=== PATIENT | male | born 1965 | race Hispanic/Latino ===

== ENCOUNTER 2019-06-01 15:12 | Inpatient (IN) | payer OTHER, SELFPAY ==
[2019-06-01 15:53] LABS: #Eosinphils 0.1 thou/uL (0.0-0.7); #Lymphocytes 2.4 thou/uL (1.20-3.40); #Monocytes 0.9 thou/uL (0.11-0.59); #Neutrophils 4.5 thou/uL (1.40-6.50); %Basophils 0.4 % (0.0-1.0); %Eosinophils 1.8 % (0.0-10.0); %Lymphocytes 29.9 % (21.0-51.0); %Monocytes 11.3 % (0.0-10.0); %Neutrophils 56.6 % (42.0-75.0); Hemoglobin 13.3 g/dL (14.0-18.0); Mean Corpuscular HGB CONC 33.4 g/dL (32.0-36.0); Mean Corpuscular Hemoglobin 25.1 pg (27.0-31.0); Mean Platelet Volume 10.4 fL (7.4-10.4); Platelet Count 171 thou/uL (130-400); RBC Distribution Width 14.1 % (11.5-14.5); Red Blood Cell (RBC) Count 5.29 mill/uL (4.70-6.10)
[2019-06-01 16:15] LABS: ALT (SGPT) 26 U/L (8-55); AST (SGOT) 18 U/L (5-34); Albumin 4.1 g/dL (3.5-5.0); Alkaline Phosphatase 114 U/L (40-150); Anion Gap 13 mmol/L (10-20); BUN (Urea Nitrogen) 12 mg/dL (8.4-25.7); Bilirubin, Total 0.3 mg/dL (0.2-1.2); CK (CPK) 129 U/L (30-200); Calc. Creatinine Clearance 0 mL/min (70-130); Calcium 9.2 mg/dL (7.8-10.44); Carbon Dioxide 24 mmol/L (22-29); Chloride 107 mmol/L (98-107); Estimated GFR-MDRD 86; Globulin 3.3 g/dL (2.4-3.5); Glucose 109 mg/dL (70-105); MDiff Complete? YES; Microcytosis SLIGHT = 6-15 cells (100X) (0-5/hpf); Ovalocytes SLIGHT = 2-5 cells (100X) (0-1/hpf); Platelet Morphology Comment Appears Adequate; Polychromasia SLIGHT = 2-3 cells (100X) (0-2/hpf); Potassium 3.8 mmol/L (3.5-5.1); Protein, Total 7.4 g/dL (6.0-8.3); Sodium 140 mmol/L (136-145); Tear Drops SLIGHT = 2-5 cells (100X) (0-1/hpf)
[2019-06-01 18:25] VITALS: BMI 30.4
[2019-06-01] MEDS ORDERED: Acetaminophen 325 MG TAB PO PRN (19:28)
[2019-06-01] MEDS ORDERED: Ondansetron ODT 4 MG TAB PO PRN (19:28)
[2019-06-01] MEDS ORDERED: Labetalol HCl 100 MG/20 ML VIAL SLOW IVP PRN (19:33)
[2019-06-01] MEDS ORDERED: Temazepam 15 MG CAP PO PRN (19:33)
[2019-06-01] MEDS ORDERED: hydrALAZINE 20 MG/ML VIAL SLOW IVP PRN (19:33)
[2019-06-01] MEDS: Famotidine 20 MG TAB PO SCH (21:33)
--- NOTE | 2019-06-01 22:21 | HP ---
CHIEF COMPLAINT: Abnormal echocardiogram finding in outpatient setting. HISTORY OF PRESENT ILLNESS: The patient is a very pleasant 53-year-old Chinese-speaking only male with no past medical history, who presented to his primary care physician's office, Dr. Vargas with [facility], for routine physical exam today. Upon auscultation, Dr. Vargas appreciated a new systolic murmur, and in office low-resolution echocardiogram was performed on the patient. Official report of this echocardiogram is not available, however, a mobile echodensity was appreciated on the mitral valve. Apparently, it was unclear if this could represent a calcification or a vegetation, and the patient was instructed to come to our facility for admission and further workup. He is afebrile, and has no white count. Feels well with no complaints. His daughter is at the bedside and provides history as well as serves as telephone maintainer. The patient is a very active gentleman with no known past medical history. 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 The patient has had no cardiac symptoms, and adamantly denies syncope, palpitations, chest pain, or shortness of breath. He has had no dizziness. He has had no fevers or chills and has felt generally very well. REVIEW OF SYSTEMS: 12-point review of systems performed and is negative. PAST MEDICAL HISTORY: None. PAST SURGICAL HISTORY: None. 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 He lives with his here in [place]. They have 3 children. He completely quit drinking any alcohol 13 years ago. He has never smoked and has never used any type of illicit drugs. FAMILY HISTORY: Positive for diabetes mellitus in his mother. Positive for end-stage renal disease in his father. ALLERGIES: NO KNOWN DRUG ALLERGIES. HOME MEDICATIONS: None. PHYSICAL EXAMINATION: VITAL SIGNS: Blood pressure 133/81, pulse is 75, O2 saturation is 99% on room air, temperature 98.6. GENERAL: This is a healthy-appearing male of stated age, who is resting comfortably in the ER, in no acute distress. HEENT: Head is atraumatic and normocephalic. Mucous membranes are moist. NECK: Trachea is midline. No JVD. CV: S1 and S2. Holosystolic murmur heard best at the left sternal border, grade 3/6. LUNGS: Regular respiratory rate and pattern. Clear to auscultation bilaterally abdomen positive bowel sounds. Soft, nontender. EXTREMITIES: No edema. Warm and well perfused. SKIN: Warm and dry. No rashes or lesions. NEUROLOGIC: Cranial nerves 2 through 12 were intact. The patient is nonfocal. LABORATORY DATA: White blood cell count 8, hemoglobin 13.3, hematocrit 39.7, platelets 171. Sodium 140, potassium 3.8, chloride 107, carbon dioxide 24, anion gap 13, BUN is 12, creatinine 0.93, GFR is 86, glucose 109. Lactic acid 1.1. AST 18, ALT 26, alkaline phosphatase today is 114, creatine kinase 129. ASSESSMENT: 1. Abnormal echocardiogram finding in outpatient setting, reported mobile echodensity present on mitral valve; differential might include rare myxoma versus vegetation versus calcification or flail leaflet. 2. Holosystolic murmur in the setting of above. 3. Mild microcytic anemia. PLAN: At this time, we will obtain a 2D echocardiogram for further evaluation of murmur and abnormal echocardiogram finding. The patient is nontoxic appearing, afebrile, and has no white count. There is no indication for any antibiotic coverage at this time. We will await findings of echocardiogram and consult Cardiology based on findings. Further recommendations based on hospital course. Job ID: [id number] [facility]
[2019-06-02 08:52] LABS: Anion Gap 12 mmol/L (10-20); BUN (Urea Nitrogen) 11 mg/dL (8.4-25.7); Calc. Creatinine Clearance 123 mL/min (70-130); Calcium 9.1 mg/dL (7.8-10.44); Carbon Dioxide 26 mmol/L (22-29); Chloride 107 mmol/L (98-107); Estimated GFR-MDRD Greater than 90; Glucose 101 mg/dL (70-105); Sodium 141 mmol/L (136-145)
[2019-06-02] MEDS: Famotidine 20 MG TAB PO SCH ×2 (08:53→19:54)
[2019-06-02 08:58] LABS: #Eosinphils 0.1 thou/uL (0.0-0.7); #Lymphocytes 1.7 thou/uL (1.20-3.40); #Monocytes 0.9 thou/uL (0.11-0.59); #Neutrophils 4.7 thou/uL (1.40-6.50); %Basophils 0.5 % (0.0-1.0); %Eosinophils 1.5 % (0.0-10.0); %Lymphocytes 22.6 % (21.0-51.0); %Monocytes 11.9 % (0.0-10.0); %Neutrophils 63.5 % (42.0-75.0); Hemoglobin 13.3 g/dL (14.0-18.0); Large Platelets SLIGHT; MDiff Complete? YES; Mean Corpuscular HGB CONC 32.1 g/dL (32.0-36.0); Mean Corpuscular Hemoglobin 24.2 pg (27.0-31.0); Mean Corpuscular Volume 75.4 fL (78.0-98.0); Mean Platelet Volume 10.1 fL (7.4-10.4); Platelet Count 168 thou/uL (130-400); Platelet Morphology Comment Appears Adequate; RBC Distribution Width 13.9 % (11.5-14.5); Red Blood Cell (RBC) Count 5.47 mill/uL (4.70-6.10); White Blood Cell (WBC) Count 7.4 thou/uL (4.8-10.8)
--- NOTE | 2019-06-02 11:30 | PDOC.HOSPP ---
- Subjective Encounter Date: 06/02/19 Encounter Time: 09:30 Subjective: Patient examined, family at the bedside, denies complaints - Objective Vital Signs & Weight: Vital Signs (12 hours) Temp Pulse Resp BP BP Pulse Ox 06/02/19 07:50 97.8 F 60 16 130/74 98 06/02/19 03:27 98.1 F 65 16 133/75 97 06/01/19 23:51 97.9 F 71 16 121/77 97 Weight Weight 77.882 kg I&O: 06/01/19 06/02/19 06/03/19 06:59 06:59 06:59 Intake Total 560 Balance 560 Result Diagrams: 06/02/19 08:25 06/02/19 08:25 ROS - Medication Medications: Active Medications Generic Name Dose Route Start Last Admin Trade Name Freq PRN Reason Stop Dose Admin Famotidine 20 mg 06/01/19 21:00 06/02/19 08:53 Pepcid PO 20 mg BID ROC Administration - Exam Eye: PERRL ENT: moist mucosa Neck: supple, no JVD Heart: RRR, murmur present Respiratory: CTAB, normal chest expansion Gastrointestinal: soft, non-tender Extremities: no cyanosis Skin: normal turgor Neurological: CN's grossly intact Musculoskeletal: normal tone, normal strength Psychiatric: normal affect Hosp A/P (1) Murmur, cardiac Code(s): R01.1 - CARDIAC MURMUR, UNSPECIFIED Status: Acute - Plan Echocardiogram has been taken, await reading Will continue to monitor
[2019-06-03 05:07] LABS: #Basophils 0.1 thou/uL (0.0-0.2); #Eosinphils 0.1 thou/uL (0.0-0.7); #Lymphocytes 2.2 thou/uL (1.20-3.40); #Monocytes 0.9 thou/uL (0.11-0.59); #Neutrophils 3.8 thou/uL (1.40-6.50); %Basophils 0.9 % (0.0-1.0); %Eosinophils 2.1 % (0.0-10.0); %Lymphocytes 30.7 % (21.0-51.0); %Neutrophils 53.3 % (42.0-75.0); Hemoglobin 13.1 g/dL (14.0-18.0); Mean Corpuscular HGB CONC 33.6 g/dL (32.0-36.0); Mean Corpuscular Hemoglobin 25.4 pg (27.0-31.0); Mean Corpuscular Volume 75.5 fL (78.0-98.0); Mean Platelet Volume 10.8 fL (7.4-10.4); Platelet Count 156 thou/uL (130-400); Red Blood Cell (RBC) Count 5.14 mill/uL (4.70-6.10)
[2019-06-03 05:21] LABS: Anion Gap 10 mmol/L (10-20); BUN (Urea Nitrogen) 12 mg/dL (8.4-25.7); Calc. Creatinine Clearance 122 mL/min (70-130); Carbon Dioxide 28 mmol/L (22-29); Chloride 106 mmol/L (98-107); Estimated GFR-MDRD Greater than 90; Glucose 101 mg/dL (70-105); Potassium 3.8 mmol/L (3.5-5.1); Sodium 140 mmol/L (136-145)
[2019-06-03] MEDS: Famotidine 20 MG TAB PO SCH ×2 (08:23→20:36)
--- NOTE | 2019-06-03 16:10 | PDOC.HOSPP ---
- Subjective Encounter Date: 06/03/19 Encounter Time: 10:30 Subjective: patient examined, denies complaints Patient's family reports patient had a "bad" wisdom tooth pulled several month ago. Otherwise, denies illness or recent infection. Denies being on antibiotics. - Objective Vital Signs & Weight: Vital Signs (12 hours) Temp Pulse Resp BP BP Pulse Ox 06/03/19 12:00 97.9 F 72 20 137/70 99 06/03/19 07:22 98.4 F 74 16 129/68 96 06/03/19 04:37 98.3 F 60 16 128/72 98 Weight Weight 77.882 kg I&O: 06/02/19 06/03/19 06/04/19 06:59 06:59 06:59 Intake Total 560 2260 Balance 560 2260 Result Diagrams: 06/03/19 04:35 06/03/19 04:35 ROS - Medication Medications: Active Medications Generic Name Dose Route Start Last Admin Trade Name Freq PRN Reason Stop Dose Admin Famotidine 20 mg 06/01/19 21:00 06/03/19 08:23 Pepcid PO 20 mg BID ROC Administration - Exam Eye: PERRL ENT: moist mucosa Neck: supple, no JVD Heart: RRR, murmur present Respiratory: CTAB Gastrointestinal: soft, non-tender Skin: normal turgor Neurological: CN's grossly intact Musculoskeletal: normal tone, normal strength Psychiatric: normal affect, A&O x 3 Hosp A/P (1) Murmur, cardiac Code(s): R01.1 - CARDIAC MURMUR, UNSPECIFIED Status: Acute - Plan Echocardiogram has been taken, vegetation seen on Echo on mitral valve, Dr. Ravi recommends CHARLA Cardiology consult placed for CHARLA consideration Will continue to monitor
[2019-06-04 05:56] LABS: Anion Gap 9 mmol/L (10-20); BUN (Urea Nitrogen) 10 mg/dL (8.4-25.7); Calc. Creatinine Clearance 128 mL/min (70-130); Calcium 8.8 mg/dL (7.8-10.44); Carbon Dioxide 29 mmol/L (22-29); Chloride 104 mmol/L (98-107); Estimated GFR-MDRD Greater than 90; Glucose 99 mg/dL (70-105); Sodium 138 mmol/L (136-145)
[2019-06-04 06:17] LABS: #Basophils 0.1 thou/uL (0.0-0.2); #Eosinphils 0.1 thou/uL (0.0-0.7); #Lymphocytes 1.9 thou/uL (1.20-3.40); #Monocytes 0.9 thou/uL (0.11-0.59); #Neutrophils 3.6 thou/uL (1.40-6.50); %Basophils 1.2 % (0.0-1.0); %Eosinophils 1.7 % (0.0-10.0); %Lymphocytes 28.5 % (21.0-51.0); %Monocytes 13.6 % (0.0-10.0); Elliptocytes SLIGHT = 2-5 cells (100X) (0-1/hpf); Hemoglobin 12.7 g/dL (14.0-18.0); Large Platelets SLIGHT; MDiff Complete? YES; Mean Corpuscular HGB CONC 33.4 g/dL (32.0-36.0); Mean Corpuscular Hemoglobin 25.2 pg (27.0-31.0); Mean Corpuscular Volume 75.5 fL (78.0-98.0); Mean Platelet Volume 10.4 fL (7.4-10.4); Platelet Count 157 thou/uL (130-400); Platelet Morphology Comment Appears Adequate; RBC Distribution Width 13.9 % (11.5-14.5); Red Blood Cell (RBC) Count 5.02 mill/uL (4.70-6.10); White Blood Cell (WBC) Count 6.5 thou/uL (4.8-10.8)
[2019-06-04] MEDS: Famotidine 20 MG TAB PO SCH ×2 (08:45→20:02)
--- NOTE | 2019-06-04 12:01 | CON ---
DATE OF CONSULTATION: HISTORY: Charlie Howe is a 53-year-old Nepali speaking only male, who went to [facility] recently for his 6-month followup. He was noted to have a loud murmur and an echocardiogram, which was abnormal and is now admitted for further evaluation. Translation is provided by his daughter. He denies any history of chest pain or shortness of breath. He has no history of rheumatic fever or prolonged bed rest as a child. He denies any fevers. PAST MEDICAL HISTORY: No history of hypertension, diabetes, or hypercholesterolemia. MEDICATIONS: None. ALLERGIES: NONE. SOCIAL HISTORY: He does not smoke. He stopped drinking 13 years ago. 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 FAMILY HISTORY: Negative for coronary artery disease. REVIEW OF SYSTEMS: Unremarkable. PHYSICAL EXAMINATION: VITAL SIGNS: Blood pressure of 132/64, pulse of 74. HEENT: PERRL. NECK: Supple. CHEST: Clear. CARDIAC: S1 and S2 normal without any S3 or S4. There is a 2-3/6 holosystolic murmur at the apex. Carotid upstrokes normal without bruits. ABDOMEN: Normal bowel sounds without tenderness or organomegaly. EXTREMITIES: Revealed no clubbing, cyanosis, or edema. IMAGING STUDIES: EKG reveals normal sinus rhythm and is unremarkable. Echocardiogram revealed ejection fraction of 60% to 65% with mild left atrial enlargement, moderate mitral regurgitation, and possible vegetation on the anterior leaflet of the mitral valve. LABORATORY DATA: Hemoglobin 12.7, hematocrit 37.9, white count 6500, platelets 157,000. CBC is unremarkable with a creatinine of 0.75, BUN of 10. Gram- positive rods have grown out of 1 of 2 blood cultures. IMPRESSION: Apparently, new onset of holosystolic murmur with abnormality on the anterior leaf of the mitral valve. He has no other significant history. PLAN: The patient will undergo transesophageal echo for better definition of the mitral valve abnormality. Further recommendations will be made once that information is available. Job ID: [id number] [facility]
--- NOTE | 2019-06-04 12:06 | PDOC.HOSPP ---
- Subjective Encounter Date: 06/04/19 Encounter Time: 12:05 Subjective: Patient english speaking pleasant gentleman, He denies chest pain, shortness of breath. Awaiting CHARLA for further evaluation. Continues to be afebrile with normal white count. - Objective Vital Signs & Weight: Vital Signs (12 hours) Temp Pulse Resp BP Pulse Ox 06/04/19 07:41 98.4 F 74 16 132/64 98 06/04/19 04:00 98.2 F 61 16 123/69 97 Weight Weight 171 lb 11.2 oz I&O: 06/03/19 06/04/19 06/05/19 06:59 06:59 06:59 Intake Total 2260 1250 Output Total 1000 Balance 2260 250 Result Diagrams: 06/04/19 05:12 06/04/19 05:12 Radiology Reviewed by me: Yes ROS - Review of Systems Constitutional: denies: fever, chills, weakness Eyes: denies: pain, vision change, conjunctivae inflammation ENT: denies: ear pain, nose congestion, throat pain Respiratory: denies: cough, shortness of breath Cardiovascular: denies: chest pain, palpitations Gastrointestinal: denies: nausea, vomitting, abdominal pain Musculoskeletal: denies: neck pain, shoulder pain, back pain, leg pain Neurological: denies: weakness, numbness, change in speech, confusion All other systems reviewed; all pertinent +/- noted in HPI/Subj - Medication Medications: Active Medications Generic Name Dose Route Start Last Admin Trade Name Freq PRN Reason Stop Dose Admin Famotidine 20 mg 06/01/19 21:00 06/04/19 08:45 Pepcid PO 20 mg BID ROC Administration - Exam NAD, awake alert. negative: ill appearing Eye: PERRL ENT: normocephalic atraumatic, moist mucosa Neck: supple, symmetric, no thyromegaly Heart: RRR, normal peripheral pulses, murmur present Respiratory: CTAB, no wheezes Gastrointestinal: soft, non-tender, normal bowel sounds Extremities: no cyanosis, no clubbing, no edema Skin: normal turgor Neurological: CN's grossly intact, normal sensation to touch, no focal deficits Musculoskeletal: normal strength, no muscle wasting Psychiatric: normal affect, normal behavior, A&O x 3 Hosp A/P (1) Murmur, cardiac Code(s): R01.1 - CARDIAC MURMUR, UNSPECIFIED Status: Acute - Plan old records reviewed/req Await CHARLA for further evaluation of mitral valve abnormality Cardiology following and appreciating recommendations Afebrile and normal white count Further management pending CHARLA results
[2019-06-05 06:58] LABS: #Basophils 0.1 thou/uL (0.0-0.2); #Eosinphils 0.1 thou/uL (0.0-0.7); #Lymphocytes 1.9 thou/uL (1.20-3.40); #Monocytes 0.9 thou/uL (0.11-0.59); #Neutrophils 3.2 thou/uL (1.40-6.50); %Basophils 0.9 % (0.0-1.0); %Eosinophils 1.9 % (0.0-10.0); %Lymphocytes 31.4 % (21.0-51.0); %Monocytes 13.8 % (0.0-10.0); Hemoglobin 12.9 g/dL (14.0-18.0); Mean Corpuscular HGB CONC 32.8 g/dL (32.0-36.0); Mean Corpuscular Hemoglobin 24.3 pg (27.0-31.0); Mean Corpuscular Volume 74.1 fL (78.0-98.0); Mean Platelet Volume 10.1 fL (7.4-10.4); Platelet Count 165 thou/uL (130-400); White Blood Cell (WBC) Count 6.1 thou/uL (4.8-10.8)
[2019-06-05 07:07] LABS: Anion Gap 12 mmol/L (10-20); BUN (Urea Nitrogen) 12 mg/dL (8.4-25.7); Calc. Creatinine Clearance 128 mL/min (70-130); Calcium 9.2 mg/dL (7.8-10.44); Carbon Dioxide 25 mmol/L (22-29); Chloride 105 mmol/L (98-107); Estimated GFR-MDRD Greater than 90; Glucose 103 mg/dL (70-105); Potassium 4.3 mmol/L (3.5-5.1); Sodium 138 mmol/L (136-145)
[2019-06-05 08:22] LABS: MDiff Complete? YES; Microcytosis SLIGHT = 6-15 cells (100X) (0-5/hpf); Platelet Morphology Comment Appears Adequate; Polychromasia SLIGHT = 2-3 cells (100X) (0-2/hpf)
[2019-06-05] MEDS: Famotidine 20 MG TAB PO SCH ×2 (09:17→19:59)
[2019-06-05] MEDS ORDERED: PROPOFOL 20 ML ONE (11:47)
[2019-06-05] MEDS ORDERED: Lidocaine 1% PF 5 ML VIAL ONE (12:25)
--- NOTE | 2019-06-05 13:50 | OP ---
DATE OF PROCEDURE: 06/05/2019 PROCEDURE PERFORMED: Transesophageal echo. INDICATIONS FOR PROCEDURE: Transesophageal echo was done for evaluation of mitral valve. ANESTHESIA: The Anesthesiology Department provided with sedation for the patient. Please see their notes for details. DESCRIPTION OF PROCEDURE: After adequate sedation was achieved, the transesophageal echo was inserted into the mouth and into the esophagus. Multiplanar views were then obtained. Left ventricle is normal in size with normal wall thickness. Systolic function is normal, estimated EF at 60% to 65%. Left atrium is mildly dilated. Left atrial appendage is widely patent. No mass or thrombus. Right atrium is normal in size. Right ventricle is normal in size, normal systolic function. Aortic valve is structurally normal. No stenosis or regurgitation. Mitral valve has a flailing mass on the posterior leaflet. There is an anteriorly directed jet of moderate mitral regurgitation that comes from the location of the flailing mass consistent with a healed vegetation. Tricuspid valve is structurally normal. No mass or thrombus. No vegetations. Mild tricuspid regurgitation. Pulmonary valve is structurally normal. No stenosis or regurgitation. No vegetations. Interatrial septum shows to be a very small patent foramen ovale with mostly [id number] shunt. Negative bubble study for [id number] shunt, but we could see a small jet of flow from the left to the right in the foramen ovale area. Thoracic aorta is without significant atherosclerotic disease. No dilatations or dissections. CONCLUSIONS: 1. Normal systolic function, ejection fraction of 60% to 65%. 2. Mild left atrial enlargement. 3. Mild TR. 4. Small patent foramen ovale with mostly [id number] shunt. 5. Flailing mass on the posterior annulus next to the posterior leaflet of the mitral valve with an anteriorly directed jet of moderate mitral regurgitation that originates at the same level of the flailing mass suggestive of a healed vegetation with some valve destruction at the site of the vegetation. Job ID: [id number]
--- NOTE | 2019-06-05 19:49 | PDOC.HOSPP ---
- Subjective Encounter Date: 06/05/19 Encounter Time: 09:00 Subjective: pt up in bed no complains - Objective Vital Signs & Weight: Vital Signs (12 hours) Temp Pulse Resp BP Pulse Ox 06/05/19 16:00 98.4 F 77 18 152/82 H 95 06/05/19 12:00 98.4 F 68 17 152/86 H 99 06/05/19 07:56 98.3 F 69 15 146/83 H 96 Weight Weight 171 lb 11.2 oz I&O: 06/04/19 06/05/19 06/06/19 06:59 06:59 06:59 Intake Total 1250 Output Total 1000 Balance 250 Result Diagrams: 06/05/19 06:24 06/05/19 06:24 ROS - Review of Systems Respiratory: denies: cough, dry, shortness of breath, hemoptysis, SOB with excertion, pleuritic pain, sputum, wheezing, other Cardiovascular: denies: chest pain, palpitations, orthopnea, paroxysmal noc. dyspnea, edema, light headedness, other - Medication Medications: Active Medications Generic Name Dose Route Start Last Admin Trade Name Freq PRN Reason Stop Dose Admin Famotidine 20 mg 06/01/19 21:00 06/05/19 09:17 Pepcid PO 20 mg BID ROC Administration - Exam ENT: negative: normocephalic atraumatic, no oropharyngeal lesions, moist mucosa , dry oral mucosa Neck: negative: supple, symmetric, no JVD, no thyromegaly, no lymphadenopathy, no carotid bruit, JVD Heart: negative: RRR, no murmur, no gallops, no rubs, normal peripheral pulses, irregular, diminshed peripheral pulses, murmur present, II/IV, III/IV Hosp A/P (1) Mitral valve vegetation Code(s): I33.0 - ACUTE AND SUBACUTE INFECTIVE ENDOCARDITIS Status: Acute (2) Murmur, cardiac Code(s): R01.1 - CARDIAC MURMUR, UNSPECIFIED Status: Acute - Plan pt had wisdom tooth removed couple months ago. He had a murmur and echo indicated vegetation. pt had CHARLA which also indicated vegatation. blood cx positive. will consult ID. NO fever/chills or elevated lfts.
--- NOTE | 2019-06-05 22:43 | CON ---
DATE OF CONSULTATION: 06/05/2019 REASON FOR CONSULTATION: Abnormal finding on the echocardiogram. HISTORY OF PRESENT ILLNESS: A 53-year-old who was otherwise asymptomatic and had a routine medical exam. A heart murmur was found and the echocardiogram was suspicious for possible mitral valve abnormality. He was then admitted and had a CHARLA. The CHARLA was read by Dr. Butts and it showed a flailing mass in posterior leaflet with an anteriorly directed jet of moderate mitral regurgitation coming from the location of a flailing mass consistent with a healed vegetation. Currently, Mr. Howe is awake. He denies headaches, visual symptoms, sore throat, odynophagia, dysphagia. No cough, sputum production. No chest pain, no back pain, no abdominal pain or diarrhea. No dyspnea. No genitourinary symptoms. No joint symptoms. No neurological symptoms. PAST MEDICAL HISTORY: Negative. PAST SURGICAL HISTORY: None. 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 Lives in [place]. He has not had any alcoholic beverage in 13 years and never smoked in his life. FAMILY HISTORY: Type 2 diabetes. End-stage renal disease. ALLERGIES: NONE. CURRENT MEDICATIONS: 1. Tylenol. 2. Pepcid. 3. Restoril. 4. Zofran. 5. Normodyne. 6. Apresoline. PHYSICAL EXAMINATION: VITAL SIGNS: Normal temperature. Other vital signs are normal except for slight elevation of systolic blood pressure. SKIN: Normal. NECK: There is no lymphadenopathy. HEENT: Ocular movements conjugate. Nasal passages patent. Oral cavity normal. LUNGS: Clear to auscultation and percussion. HEART: S1-S2 regular rate. ABDOMEN: Soft, not distended or tender. No ascites. No bladder distention. EXTREMITIES: No joint inflammatory activity. NEUROLOGIC: Nonfocal. LABORATORY DATA: White cell count 8.0, hemoglobin 13, MCV 75. Normal differential except for mild monocytosis. Chemistry was normal except for glucose of 109. One out of 2 sets of blood cultures with gram-positive sav, yet to be identified, susceptibility tested. ASSESSMENT: Otherwise healthy middle-aged man with abnormal cardiac exam and a flailing mass detected on transesophageal echocardiogram. DISCUSSION: The patient has 1 major criteria, but no minor criteria and the evidence is insufficient to confirm infectious endocarditis and I would not recommend treating this finding at this point in time unless the blood cultures return positive, which I do not expect in view of the other clinical findings. Other complications such as rupture of the chordee tendineae or myxomatous degeneration are possible. Job ID: [id number]
[2019-06-06] MEDS: Famotidine 20 MG TAB PO SCH (09:13)
[2019-06-06 18:28] VITALS: BP 157/84; TEMP 98.4
--- NOTE | 2019-06-06 21:14 | DIS ---
DATE OF ADMISSION: 06/01/2019 DATE OF DISCHARGE: 06/06/2019 DISCHARGE DIAGNOSES: As of the followin. Mitral valve vegetation. 2. Murmur. 3. Iron deficiency anemia. HOSPITAL COURSE: The patient is a 53-year-old male, who initially presented to the primary care's office, was found to have a loud mitral murmur at which time he presented to the hospital for further evaluation. He underwent an echocardiogram which indicated a possible vegetation on the anterior leaf of the mitral valve, considering recommendation for CHARLA. He was seen by Cardiology, who did order a CHARLA. The CHARLA indicated normal systolic function with EF of 60% to 65% of failing mass to the posterior anulus next to the posterior leaflet of the mitral valve with an anteriorly directed jet of moderate mitral regurgitation. Also, the failing mass suggestive of a healed vegetation. The patient had his wisdom tooth removed about two months ago. He denies any fevers or chills. I also consulted Infectious Disease for possible endocarditis given his one blood culture that came back positive, however, that was Corynebacterium and was most likely contaminant. Infectious Disease did not think that this patient had endocarditis. He had only one major criteria but no minor criteria and did not recommend any antibiotics. The patient was then discharged home. He will follow up with his Primary and Cardiology for monitoring of his echocardiogram. I have updated this with the patient's daughter, who is at the bedside. I have started him on iron and he will follow up with outpatient for possibly colonoscopy or further iron studies. PHYSICAL EXAMINATION: VITAL SIGNS: At discharge, temperature 98.2, 98, 18, 98% on room air, 133/79. GENERAL: He is awake, alert, and oriented x3. Does not appear in distress. CV: S1, S2 present. No murmurs, rubs, or gallops. ABDOMEN: Soft and nontender. Bowel sounds are present x2. Again, he will be discharged home. He will follow up with Primary and also Cardiology. Job ID: [id number]
--- NOTE | 2019-06-09 14:41 | EKG ---
Test Reason : Blood Pressure : / mmHG Vent. Rate : 069 BPM Atrial Rate : 069 BPM P-R Int : 160 ms QRS Dur : 110 ms QT Int : 406 ms P-R-T Axes : 047 013 025 degrees QTc Int : 435 ms Normal sinus rhythm Normal ECG Confirmed by LORAINE HERNÁNDEZ M.D. ([id number]), order editor ASTON BRIONES ([id number]) on 06/09/2019 2:41:05 PM Referred By: Confirmed By:LORAINE HERNÁNDEZ M.D.
== END 2019-06-06 19:05 | disposition home or self-care (01) | DRG 307 ==
LOC: ERS 15:12 → 2SW 17:18 → OBSVTOIN 17:18 → 2NO 06-04 18:54
PROVIDERS: ADMIT Internal Medicine; ATTEND Internal Medicine
PROC: B24BZZ4 Ultrasonography of Heart with Aorta, Transesophageal (ICD-10-PCS; principal; 2019-06-05)
DX: R01.1 Cardiac murmur, unspecified (principal); D50.9 Iron deficiency anemia, unspecified
CPT/HCPCS: 36415; 80048; 80053; 82550; 83605; 85025; 87040; 93005; 93306; 93312; J2001; J2704

== ENCOUNTER 2022-04-02 08:11 | Emergency (ER) | payer OTHER, SELFPAY ==
[2022-04-02 08:42] LABS: #Eosinphils 0.1 thou/uL (0.0-0.7); #Lymphocytes 2.4 thou/uL (1.20-3.40); #Monocytes 0.7 thou/uL (0.11-0.59); #Neutrophils 7.8 thou/uL (1.40-6.50); %Basophils 0.1 % (0.0-1.0); %Eosinophils 0.6 % (0.0-10.0); %Lymphocytes 21.8 % (21.0-51.0); %Monocytes 6.3 % (0.0-10.0); %Neutrophils 71.1 % (42.0-75.0); Hemoglobin 14.7 g/dL (14.0-18.0); Mean Corpuscular HGB CONC 32.1 g/dL (32.0-36.0); Mean Corpuscular Hemoglobin 25.5 pg (27.0-31.0); Mean Corpuscular Volume 79.4 fL (78.0-98.0); Mean Platelet Volume 10.3 fL (7.4-10.4); Platelet Count 178 thou/uL (130-400); RBC Distribution Width 14.8 % (11.5-14.5); Red Blood Cell (RBC) Count 5.75 mill/uL (4.70-6.10); White Blood Cell (WBC) Count 10.9 thou/uL (4.8-10.8)
[2022-04-02 08:43] LABS: Bacteria/HPF None Seen HPF (None Seen); Bilirubin Negative (Negative); Blood, Urine Negative (Negative); Clarity Clear (Clear); Glucose, Urine (Dipstick) Normal (Negative); Ketone, Urine Negative (Negative); Leukocyte Negative Leu/uL (Negative); Nitrite Negative (Negative); Protein, Urine (Dipstick) 30 mg/dL (Neg-Trace); RBC/HPF 0-3 HPF (0-3); Specific Gravity, Urine 1.013 (1.002-1.036); Squamous Epithelial None Seen HPF (0-3); Urobilinogen Normal mg/dL (Less than 2); WBC/HPF 0-3 HPF (0-3); pH, Urine 6.5 (5.0-9.0)
[2022-04-02 08:44] LABS: Sperm/HPF 4+ HPF (None Seen)
[2022-04-02 08:51] LABS: Amphetamine Not Detected (NotDetected); Barbiturates Screen Not Detected (NotDetected); Benzodiazepine Screen Not Detected (NotDetected); Cocaine Metabolite Screen Not Detected (NotDetected); Methadone Not Detected (NotDetected); Methamphetamine Not Detected (NotDetected); Opiate Screen Not Detected (NotDetected); Oxycodone Screen Not Detected (NotDetected); Phencyclidine (PCP) Not Detected (NotDetected); THC/Cannabinoid Screen Not Detected (NotDetected); Tricyclic Screen Not Detected (NotDetected)
[2022-04-02 08:57] LABS: ALT (SGPT) 21 U/L (8-55); AST (SGOT) 14 U/L (5-34); Acetaminophen Less than 10.0 mcg/mL (10.0-30.0); Alcohol Less than 10 mg/dL (Less than 10); Alkaline Phosphatase 112 U/L (40-110); Anion Gap 16 mmol/L (10-20); BUN (Urea Nitrogen) 9 mg/dL (8.4-25.7); Bilirubin, Total 0.9 mg/dL (0.2-1.2); CK (CPK) 158 U/L (30-200); Calc. Creatinine Clearance 0 mL/min (70-130); Calcium 9.2 mg/dL (7.8-10.44); Carbon Dioxide 23 mmol/L (22-29); Chloride 102 mmol/L (98-107); Globulin 3.1 g/dL (2.4-3.5); Glucose 154 mg/dL (70-105); Lipase 25 U/L (8-78); Potassium 3.8 mmol/L (3.5-5.1); Protein, Total 7.1 g/dL (6.0-8.3); Salicylate Less than 8.0 mg/dL (15.0-30.0); Sodium 137 mmol/L (136-145)
== END 2022-04-02 09:43 | disposition home or self-care (01) ==
LOC: ERS 08:11
DX: R56.9 Unspecified convulsions (principal); R00.0 Tachycardia, unspecified
CPT/HCPCS: 36415; 70450; 80053; 80306; 80307; 81003; 81015; 82140; 82550; 83690; 84146; 85025; 93005

== ENCOUNTER 2022-10-11 08:16 | Emergency (ER) | payer SELFPAY ==
[2022-10-11] MEDS ORDERED: levETIRAcetam 500 MG/5 ML VIAL ONE (08:38)
[2022-10-11] MEDS ORDERED: Ondansetron PF 4 MG/2 ML Vial ONE (08:39)
[2022-10-11 10:15] LABS: #Lymphocytes 0.8 thou/uL (1.20-3.40); #Monocytes 1.1 thou/uL (0.11-0.59); #Neutrophils 12.8 thou/uL (1.40-6.50); %Basophils 0.1 % (0.0-1.0); %Eosinophils 0.3 % (0.0-10.0); %Lymphocytes 5.4 % (21.0-51.0); %Monocytes 7.6 % (0.0-10.0); %Neutrophils 86.6 % (42.0-75.0); Hemoglobin 13.1 g/dL (14.0-18.0); Mean Corpuscular HGB CONC 32.2 g/dL (32.0-36.0); Mean Corpuscular Hemoglobin 26.2 pg (27.0-31.0); Mean Corpuscular Volume 81.2 fl (78.0-98.0); Mean Platelet Volume 10.2 fL (7.4-10.4); Platelet Count 133 10x3/uL (130-400); RBC Distribution Width 14.3 % (11.5-14.5); White Blood Cell (WBC) Count 14.8 10x3/uL (4.8-10.8)
[2022-10-11 10:29] LABS: ALT (SGPT) 36 U/L (8-55); AST (SGOT) 22 U/L (5-34); Albumin 3.5 g/dL (3.5-5.0); Alkaline Phosphatase 81 U/L (40-110); Anion Gap 12 mmol/L (10-20); BUN (Urea Nitrogen) 9 mg/dL (8.4-25.7); Bilirubin, Total 0.3 mg/dL (0.2-1.2); Calc. Creatinine Clearance 0 mL/min (70-130); Calcium 8.2 mg/dL (7.8-10.44); Carbon Dioxide 22 mmol/L (22-29); Chloride 109 mmol/L (98-107); Estimated GFR 106; Globulin 2.3 g/dL (2.4-3.5); Glucose 132 mg/dL (70-105); Potassium 3.6 mmol/L (3.5-5.1); Protein, Total 5.8 g/dL (6.0-8.3); Sodium 139 mmol/L (136-145)
[2022-10-11 10:43] LABS: SARS-CoV-2 NAA Rapid Test Not Detected (NotDetected)
[2022-10-11 11:24] LABS: Bilirubin Negative (Negative); Blood, Urine Negative (Negative); Clarity Clear (Clear); Glucose, Urine (Dipstick) Normal (Negative); Ketone, Urine Negative (Negative); Leukocyte Negative Leu/uL (Negative); Nitrite Negative (Negative); Protein, Urine (Dipstick) 10 mg/dL (Neg-Trace); Specific Gravity, Urine 1.009 (1.002-1.036); Urobilinogen Normal mg/dL (Less than 2)
== END 2022-10-11 12:27 | disposition home or self-care (01) ==
LOC: ERS 08:16
DX: J69.0 Pneumonitis due to inhalation of food and vomit (principal); R56.9 Unspecified convulsions; Z20.822 Contact with and (suspected) exposure to COVID-19
CPT/HCPCS: 36415; 70450; 71045; 80053; 81003; 85025; 96374; 96375; J1953; J2405

== ENCOUNTER 2022-12-23 12:29 | Outpatient (CLI) | payer OTHER | END 2022-12-23 12:30 | disposition home or self-care (01) | LOC: MRI 12:29 | PROVIDERS: ATTEND Psychiatry & Neurology Neurology | DX: R56.9 Unspecified convulsions (principal) | CPT/HCPCS: 70553; 95816; 95957 ==